=== PATIENT | male | born 1975 | race Caucasian/White ===

== ENCOUNTER 2019-03-28 23:48 | Emergency (ER) | payer OTHER ==
[~2019-03-28] VITALS: Ht 177.8 cm; Wt 70.3 kg
[~2019-03-28 23:48] MED LIST: ATIVAN1 MG PO; NITROGLYCERIN0.4 MG SL; XANAX 0.5 MG0.5 M1 OR
[2019-03-29] MEDS ORDERED: PERCOCET 7.5-31 EACH PO (01:09)
[2019-03-29 02:14] VITALS: BP 135/70
== END 2019-03-29 02:15 | disposition home or self-care (01) ==
LOC: M.ERS 23:48
DX: M25.471 Effusion, right ankle (principal)

== ENCOUNTER 2020-02-05 23:24 | Emergency (ER) | payer OTHER ==
[~2020-02-05] VITALS: Ht 180.3 cm; Wt 85.7 kg
[~2020-02-05 23:24] MED LIST changes: +PERCOCET 7.5-31 EACH PO
[2020-02-06] MEDS ORDERED: CLEOCIN HCL300 MG PO (00:46)
[2020-02-06 01:04] VITALS: BP 133/80
== END 2020-02-06 01:07 | disposition home or self-care (01) ==
LOC: M.ERS 23:24
DX: S01.512A Laceration without foreign body of oral cavity, initial encounter (principal); S01.511A Laceration without foreign body of lip, initial encounter; W01.0XXA Fall on same level from slipping, tripping and stumbling without subsequent striking against object, initial encounter; Y93.89 Activity, other specified; Y92.89 Other specified places as the place of occurrence of the external cause; Y99.8 Other external cause status

== ENCOUNTER 2020-02-06 09:02 | Emergency (ER) | payer OTHER ==
[~2020-02-06] VITALS: Ht 177.8 cm; Wt 70.3 kg
[~2020-02-06 09:02] MED LIST changes: +CLEOCIN HCL300 MG PO
[2020-02-06 09:45] VITALS: BP 144/94
== END 2020-02-06 09:48 | disposition home or self-care (01) ==
LOC: M.ERS 09:02
DX: S01.511D Laceration without foreign body of lip, subsequent encounter (principal); Z79.899 Other long term (current) drug therapy; W26.9XXD Contact with unspecified sharp object(s), subsequent encounter

== ENCOUNTER 2020-06-11 13:53 | Inpatient (IN) | payer OTHER ==
[~2020-06-11] VITALS: Ht 177.8 cm; Wt 71.4 kg
[2020-06-11 14:00] VITALS: BP 120/57
[2020-06-11 14:22] LABS: ABSOLUTE NEUTROPHILS 3.2 thou/uL (1.6-8.1); EOSINOPHILS 0.1 %; MCV 61.5 fL (80.0-100.0); MPV 7.9 fl. (7.2-11.1)
[2020-06-11 14:24] LABS: ABSOLUTE BASOPHILS 0.1 thou/uL (0.0-0.2); ABSOLUTE LYMPHOCYTES 2.5 thou/uL (0.8-5.3); ABSOLUTE MONOCYTES 1.3 thou/uL (0.0-1.2); HEMATOCRIT 30.6 % (42.0-52.0); HEMOGLOBIN 9.1 gm/dL (14.0-18.0); LYMPHOCYTES 35.4 %; MCH 18.3 pg (26.0-34.0); MCHC 29.7 g/dL (28.0-37.0); MONOCYTES 17.9 %; NUCLEATED RBCS 0 /100WBC; PLATELET COUNT* 277 thou/uL (150-400); POLYS 45.6 %; RBC 4.98 mil/uL (4.50-6.00); WBC 7.1 thou/uL (4.0-11.0)
[2020-06-11 14:27] LABS: APTT 28.1 Seconds (25.0-31.3); PROTIME 10.8 Seconds (9.20-11.50)
[2020-06-11 14:41] LABS: CALCIUM 8.9 mg/dL (8.5-10.1); CREATININE 1.4 mg/dL (0.6-1.3); POTASSIUM 3.9 mmol/L (3.5-5.1)
[2020-06-11 14:53] LABS: ALBUMIN 4.2 g/dL (3.4-5.0); CK-MB MASS 3.2 ng/mL (<0.5-3.6); MAGNESIUM 1.6 mg/dL (1.8-2.4); TOTAL BILIRUBIN 3.3 mg/dL (<0.1-1.0); TOTAL PROTEIN 7.8 g/dL (6.4-8.2)
--- NOTE | 2020-06-11 17:18 | NUR ---
RIGHT BASILIC VESSEL ACCESSED FOR 5 TURKMEN TRIPLE PICC. LINE PRE-TRIMMED TO 41 CM AND ADVANCED TO THE ZERO GABRIEL WITH NO RESISTANCE MET. UPPER ARM CIRCUMFERENCE ABOVE INSERTION SITE= 12 1/2". SHERLOCK MAGNET AND 3CG CONFIRMATION OF TIP TERMINATION AT THE CAVOATRIAL JUNCTION APPRECIATED. GUIDEWIRE REMOVED, LINE FLUSHED AND INSERTION SITE DRESSED. REPORT GIVEN TO JOSSELIN DOSS.
[2020-06-11 19:44] LABS: CALCIUM 7.8 mg/dL (8.5-10.1); CREATININE 1.3 mg/dL (0.6-1.3)
[2020-06-11 20:30] VITALS: BP 135/68
[2020-06-11 20:35] VITALS: BP 133/80
[2020-06-12] VITALS (7 sets, daily range): BP systolic 118–138; BP diastolic 76–88
[2020-06-12 07:59] LABS: HEMATOCRIT 29.9 % (42.0-52.0); HEMOGLOBIN 8.8 gm/dL (14.0-18.0); MCH 18.5 pg (26.0-34.0); MCHC 29.4 g/dL (28.0-37.0); MCV 62.9 fL (80.0-100.0); MPV 8.2 fl. (7.2-11.1); RBC 4.75 mil/uL (4.50-6.00); WBC 5.1 thou/uL (4.0-11.0)
[2020-06-12 08:12] LABS: CALCIUM 8.3 mg/dL (8.5-10.1); CREATININE 1.1 mg/dL (0.6-1.3); POTASSIUM 3.9 mmol/L (3.5-5.1)
[2020-06-12 08:16] LABS: ALBUMIN 3.9 g/dL (3.4-5.0); MAGNESIUM 2.3 mg/dL (1.8-2.4); TOTAL BILIRUBIN 2.3 mg/dL (<0.1-1.0)
--- NOTE | 2020-06-12 08:33 | NUR ---
RECIEVED PT FROM ED AT APPROX 2034. PT IS AWAKE AND ORIENTED X4. TEST BORER IS TRACING SR. PT IS NOT IN DISTRESS. ADMISSION ASSESSMENTS DONE AND CHARTED. PT C/O RIGHT SIDED CHEST PAIN RELIEVED BY PAIN MEDS GIVEN PER OCT. NO ACUTE CHANGES THIS SHIFT. CALL LIGHT WITHIN REACH. HOURLY ROUNDING DONE FOR PT SAFETY.
--- NOTE | 2020-06-12 10:59 | EKG ---
[place] [address] ELECTROCARDIOGRAM REPORT Name: KWSEI GARCIA Room: [address] ADM IN .R.#: [id number] Admission: 06/11/20 Attend Phys: Nia Lucas, Discharge: Date of : 71 Date of Service: 06/11/20 1359 Report #: [id number] THIS REPORT FOR: //name// [facility] ED Test Date: 2020-06-11 Test Time: 13:59:37 Pat Name: KWESI GARCIA Department: Room: [facility] Gender: M Recreational Leader: SALOMON : 1975 Requested By: Abhinav Beltre Order Number: [id number] MD: Dionicio Montgomery Measurements Intervals [place] Rate: 124 P: 54 MO: 138 QRS: 13 QRSD: 97 T: 51 QT: 317 QTc: 456 Interpretive Statements Sinus tachycardia Minimal ST depression, lateral leads ST elevation, consider early repolarization Baseline wander in lead(s) II,III,aVR,aVF,V2,V3,V4,V5,V6 Compared to ECG 05/27/2011 19:59:52 ST (T wave) deviation now present Sinus rhythm no longer present Electronically Signed On 06-12-2020 10:59:06 TRADE RECRUITER by Dionicio Montgomery [email or web address] <ELECTRONICALLY SIGNED> By: Dionicio Montgomery MD, [facility] 06/12/20 1059 1359 1359 Dionicio Montgomery MD, [facility] /EPI
--- NOTE | 2020-06-12 11:50 | NUR ---
RECIEVED RPEORT AROUND 0730. ASSUMED CARE. IV'S INTACT. HEART MONITOR ATTACHED. PT UP AD SAVITA THIS AM. REPORTED PAIN OF 4 TO 5 IN LOWER BACK AND CHEST. CHEST PAIN DOESN'T RADIATE ANYWHERE. MEDS GIVEN THIS AM PER OCT. CALL LIGHT WITHIN REACH. NPO STATUS MAINTAINED. WILL CONTINUE TO MONITOR.
--- NOTE | 2020-06-12 17:51 | NUR ---
PICC LINE INTACT. IV LEFT AC INTACT. HEART MONITOR ATTACHED. HOURLY ROUNDING PERFORMED. MEDS PER OCT. NO MORE PAIN REPORTED THIS SHIFT. GI CONSULTED THIS SHIFT NOTES PER CHART. PT REG DIET NOW. PT UP ADLIB. CALL LIGHT WITHIN REACH. WILL CONTINUE TO MONITOR.
[2020-06-13 04:18] VITALS: BP 124/79
--- NOTE | 2020-06-13 05:05 | NUR ---
ASSUMED PT CARE AT APPROX 1930. PT IS AWAKE AND ORIENTED X4, FORGETFUL AT TIMES. 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 PT C/O PAIN ON THE RIGHT SIDE OF HIS CHEST AND HIS BACK, PAIN MEDICINE GIVEN PER MAR WITH PARTIAL RELIEF. PT IS NOT IN DISTRESS. FALL PRECAUTIONS IN PLACE. CALL LIGHT WITHIN REACH. HOURLY ROUNDING DONE FOR PT SAFETY.
[2020-06-13 05:11] LABS: HEMATOCRIT 28.7 % (42.0-52.0); HEMOGLOBIN 8.2 gm/dL (14.0-18.0); MCH 18.3 pg (26.0-34.0); MCHC 28.5 g/dL (28.0-37.0); MCV 64.1 fL (80.0-100.0); MPV 6.6 fl. (7.2-11.1); RBC 4.47 mil/uL (4.50-6.00); RDW-CV 19.2 % (10.5-14.5); WBC 5.1 thou/uL (4.0-11.0)
[2020-06-13 05:45] LABS: ALBUMIN 3.8 g/dL (3.4-5.0); CALCIUM 8.3 mg/dL (8.5-10.1); CREATININE 1.1 mg/dL (0.6-1.3); MAGNESIUM 2.2 mg/dL (1.8-2.4); POTASSIUM 3.5 mmol/L (3.5-5.1); TOTAL BILIRUBIN 1.9 mg/dL (<0.1-1.0); TOTAL PROTEIN 7.5 g/dL (6.4-8.2)
[2020-06-13 08:00] VITALS: BP 124/79
--- NOTE | 2020-06-13 10:38 | NUR ---
RECIEVED REPORT AROUND 0715. ASSUMED CARE. IV INTACT. PICC UPPER RIGHT ARM. HEART MONITOR ATTACHED AT SR. PT UP ADLIB THIS AM. MEDS GIVEN PER MAR. REPORTED PAIN. PAIN MED GIVEN. VS AND ASSESSMENT CHARTED. CALL LIGHT WITHIN REACH. WILL CONTINUE TO MONITOR.
[2020-06-13 16:00] VITALS: BP 126/74
--- NOTE | 2020-06-13 18:17 | NUR ---
NO NEW CHANGES. PT IV INTACT PICC. HEART MONITOR ATTACHED. PT UP WITH WALKER/CANE. MEDS GIVEN PER OCT. HOURLY ROUNDING PERFORMED. NO OTHER REPORTS OF PAIN. PT WAS ANXCIOUS THIS SHIFT. GAVE PRN ATIVAN AND SCHEDULED ATIVAN. PT IS MORE CALM NOW. IS IN BED CURRENTLY. NO NEEDS AT THIS MOMENT. CALL LIGHT WIHTIN REACH. WILL CONTINUE TO MONITOR.
[2020-06-13 20:00] VITALS: BP 133/85
[2020-06-14] VITALS: BP 118/69
[2020-06-14 04:00] VITALS: BP 128/83
--- NOTE | 2020-06-14 07:49 | NUR ---
ASSUMED PT CARE AT APPROX 1930. PT IS AWAKE, ORIENTED TO SELF, CONFUSED. PT PULLED PICC OUT, AND KEPT ON PULLING HEART MONITOR STICKERS OFF. PT IS REORIENTED TO PLACE AND SITUATION. CIWA DONE CHARTED. PRN ATIVAN GIVEN PER OCT. PT IS CLOSELY MONITORED.
[2020-06-14 08:00] VITALS: BP 124/88
[2020-06-14] MEDS ORDERED: XARELTO15 MG PO (08:47)
[2020-06-14] MEDS ORDERED: ATIVAN0.5 M1 PO (08:47)
[2020-06-14] MEDS ORDERED: XARELTO20 MG PO (08:47)
[2020-06-14] MEDS ORDERED: CEFDINIR300 MG PO (08:47)
[2020-06-14] MEDS ORDERED: MEDROL4 M1 PO (08:50)
--- NOTE | 2020-06-14 09:17 | NUR ---
RECIEVED REPORT AROUND 0715. ASSUMED CARE. PT LYING IN BED THIS AM. IV INTACT LEFT UPPER ARM. PT PULLED PICC OUT LAST NIGHT. VS AND ASSESSMENT CHARTED. MEDS GIVEN THIS AM PER OCT. DISCHARGE ORDERED. PT HAS IV ABX TO RUN BEFORE DISHCARGE. HEART MONITOR ATTACHED. CALL LIGHT WITHIN REACH. WILL CONTINUE TO MONITOR.
[2020-06-14 11:12] LABS: HEMATOCRIT 28.6 % (42.0-52.0); HEMOGLOBIN 8.4 gm/dL (14.0-18.0); MCH 18.7 pg (26.0-34.0); MCHC 29.4 g/dL (28.0-37.0); MCV 63.5 fL (80.0-100.0); RBC 4.5 mil/uL (4.50-6.00); RDW-CV 19.5 % (10.5-14.5); WBC 5.4 thou/uL (4.0-11.0)
[2020-06-14 11:21] LABS: CALCIUM 8.4 mg/dL (8.5-10.1); POTASSIUM 3.5 mmol/L (3.5-5.1)
[2020-06-14 11:36] VITALS: BP 124/88
--- NOTE | 2020-06-14 12:51 | NUR ---
DISCHARGE ORDERS RECIEVED. SCRIPTS AND DISCHARGE PACKET GIVEN TO PT. IV TAKEN OUT. HEART MONITOR OFF. PACKET GONE OVER WITH PT AND SIGNIGICANT OTHER. PT LEFT UNIT AT 1247 VIA WHEEL CHAIR WITH NURSING STAFF AND ALL BELONGINGS.
== END 2020-06-14 12:47 | disposition home or self-care (01) | DRG 177 ==
LOC: M.ERS 13:53 → M.TBA-ER 17:22 → M.ORTHSURG 20:36
PROVIDERS: Family Medicine; ADMIT Internal Medicine; ATTEND Internal Medicine
PROC: B548ZZA Ultrasonography of Superior Vena Cava, Guidance (ICD-10-PCS; principal; 2020-06-11)
PROC: 02HV33Z Insertion of Infusion Device into Superior Vena Cava, Percutaneous Approach (ICD-10-PCS; principal; 2020-06-11)
PROC: XW033E5 Introduction of Remdesivir Anti-infective into Peripheral Vein, Percutaneous Approach, New Technology Group 5 (ICD-10-PCS; principal; 2020-06-11)
DX: U07.1 COVID-19 (principal); J12.89 Other viral pneumonia; J96.01 Acute respiratory failure with hypoxia; J15.6 Pneumonia due to other Gram-negative bacteria; N17.0 Acute kidney failure with tubular necrosis; I26.99 Other pulmonary embolism without acute cor pulmonale; E87.1 Hypo-osmolality and hyponatremia; K50.90 Crohn's disease, unspecified, without complications; F10.239 Alcohol dependence with withdrawal, unspecified; D64.9 Anemia, unspecified; I25.10 Atherosclerotic heart disease of native coronary artery without angina pectoris; Y90.9 Presence of alcohol in blood, level not specified; E80.6 Other disorders of bilirubin metabolism; E11.9 Type 2 diabetes mellitus without complications; I25.2 Old myocardial infarction